=== PATIENT | female | born 1955 | race Two or more races ===

== ENCOUNTER → 2024-10-23 | Outpatient (CLI) | payer MEDICARE, SELFPAY ==
--- NOTE | 2024-10-23 17:05 | XR_ITS ---
Examination:Right hip AP, lateral, AP pelvis 3 views Technique: Hip AP lateral, AP pelvis, 3 views Exam date and time:October 23, 2024 1722 hours INDICATIONS: Right hip pain months FINDINGS: Right hip hemiarthroplasty. Satisfactory alignment. No loosening of the prosthetic components. Left hip bones of the pelvis intact IMPRESSION: Right hip hemiarthroplasty with satisfactory alignment.
--- NOTE | 2024-10-23 17:05 | XR_ITS ---
Examination: Cervical spine 4 views TECHNIQUE: AP, lateral, swimmer's lateral, coned AP odontoid cervical spine 3 views Date and time: October 23, 2024 1731 hours INDICATIONS: Neck pain months. FINDINGS: Straightening normal cervical lordosis. No cervical fracture Intact odontoid Moderate to advanced degenerative disc disease C4-C5, C5-C6 IMPRESSION: Moderate to advanced degenerative disc disease C4-C5, C5-C6
--- NOTE | 2024-10-23 17:05 | XR_ITS ---
Examination: Knee bilateral, 6 views Technique: Knee AP, lateral, oblique each knee total 6 views Date and time of exam: October 23, 2024 1724 hours INDICATIONS: Knee pain chronic years FINDINGS: Bilateral advanced tricompartment osteoarthritis, most severe involving medial joint spaces Ossified joint body 14 mm left knee suprapatellar No fractures Moderate osteopenia IMPRESSION: Bilateral advanced tricompartment osteoarthritis
--- NOTE | 2024-10-23 17:05 | XR_ITS ---
Examination: Lumbar spine, 5 views Technique: Lumbar spine AP, lateral, coned lateral lower lumbar spine, bilateral obliques 5 views Exam date and time: October 23, 2024 1712 hours INDICATIONS: Low back pain months. FINDINGS: Adequate alignment lumbar vertebral bodies Transitional L5 vertebral body No lumbar fracture Mild to moderate diffuse lumbar disc narrowing most prominent T12-L1 IMPRESSION: No lumbar fracture Mild to moderate diffuse lumbar disc narrowing
== END | disposition home or self-care (01) ==
PROVIDERS: PCP Nurse Practitioner Family; Referring Provider Nurse Practitioner Family; Visit Provider Nurse Practitioner Family
DX: M50.321 Other cervical disc degeneration at C4-C5 level (principal); M48.061 Spinal stenosis, lumbar region without neurogenic claudication; M17.0 Bilateral primary osteoarthritis of knee; M25.551 Pain in right hip; Z96.641 Presence of right artificial hip joint
CPT/HCPCS: 72040; 72110; 73503; 73562